=== PATIENT | female | born 1960 | race Caucasian/White ===

== ENCOUNTER → 2024-05-13 11:06 | Outpatient (REF) | payer OTHER, SELFPAY | LOC: HWRAD 11:06 | PROVIDERS: ATTENDING PHYSICIAN Family Medicine | DX: Z12.31 Encounter for screening mammogram for malignant neoplasm of breast (principal); Z78.0 Asymptomatic menopausal state | CPT/HCPCS: 77063; 77067; 77080 ==

== ENCOUNTER 2025-04-23 03:02 | Inpatient (IN) | payer OTHER, SELFPAY ==
[2025-04-22 18:07] VITALS: BP 142/87
[2025-04-22 18:27] LABS: Hematocrit 42.7 % (37.0-47.0); Hemoglobin 14.8 g/dL (12.0-16.0); Mean Corp Hgb Conc. 34.7 g/dL (33.0-37.0); Mean Corpuscular Volume 91.4 fL (81.0-99.0); Nucleated Red Blood Cells % 0 %; Platelet Count 251 10^3/uL (130-400); Red Cell Dist. Width 12.3 % (11.5-14.5)
[2025-04-22 18:48] LABS: ALT (SGPT) 16 U/L (0-35); AST (SGOT) 19 U/L (14-36); Albumin 4.5 g/dl (3.5-5.0); Alkaline Phosphatase 65 U/L (38-126); Blood Urea Nitrogen 11 mg/dl (7-17); Calcium 10.6 mg/dl (8.4-10.2); Carbon Dioxide 24 mmol/L (22-30); Chloride 108 mmol/L (98-107); Glucose 126 mg/dl (70-99); Potassium 3.9 mmol/L (3.5-5.1); Sodium 137 mmol/L (135-145); Total Protein 6.9 g/dl (6.3-8.2); eGFR > 60.00
[2025-04-22 19:00] LABS: Lipase > 4000 U/L (23-300)
[2025-04-22 20:26] VITALS: BP 142/80
[2025-04-22 21:00] VITALS: BP 108/95
[2025-04-22] MEDS: NSS 1000 IV (21:33)
[2025-04-22 21:34] VITALS: BP 108/95
[2025-04-22 22:00] VITALS: BP 135/77
--- NOTE | 2025-04-22 22:56 | ED.GENMED ---
History of Present Illness
General
Chief Complaint: Abdominal Pain
Source: patient
Exam Limitations: none
Time Seen by Provider: 04/22/25 22:55
Nursing documentation reviewed up to this point in time: agreed with
History of Present Illness
History of Present Illness:
Chief complaint: Abdominal pain
HPI:
This is a 64-year-old female with a past medical history of GERD, pancreatitis, hypertension, presents Emergency Department today with concerns of epigastric abdominal pain radiating to the back. Patient reports that this started around 3 days ago.
She reports that she was recently off from work and was recently eating fatty meals. She reports that the day before the symptoms started, she had multiple drinks in a row when she normally has 1 a night. She denies any history of alcohol use
disorder. She denies any frequent NSAID use. She denies any hematemesis, rectal bleeding, dark tarry stools. She reports that this pain feels like when she had pancreatitis in the past. Patient reports that when she had pancreatitis few years
ago, it was attributed to her diet. Patient states that she is felt nauseated but has not had any episodes of vomiting. Patient reports that she was able to tolerate some Gatorade earlier today but most of the time food and drink makes the pain
significantly worse. She denies any fevers or chills,, sick contacts, upper respiratory symptoms, chest pain or shortness of breath. She had an ovarian cyst removed as well as a but denies any other intra-abdominal surgeries.
EXAM:
General: Patient is well appearing and in no acute distress; non-toxic
Skin: Warm and dry, no rashes or lesions
Head: Normocephalic, atraumatic
Eyes: Sclera non-icteric. EOMs intact.
Cardiac: Regular rate and rhythm, no murmurs
Peripheral Vascular: No lower extremity swelling or edema
Pulm: Normal respiratory effort
Abdomen: Severe epigastric tenderness to palpation with guarding
Neuro: CN II-XII intact, no focal neurologic deficits.
Psychiatric: Appropriate mood and affect.
NUMBER AND COMPLEXITY OF PROBLEMS ADDRESSED AT THE ENCOUNTER
� Chronic conditions affecting care: Hypertension, GERD, pancreatitis
� Acute Exacerbation and/or Progression of Chronic Illness:
� Differential Diagnosis includes: Pancreatitis, GERD, gastritis, biliary colic, cholecystitis
AMOUNT AND/OR COMPLEXITY OF DATA TO BE REVIEWED AND ANALYZED
� I performed an independent evaluation of and my interpretation is:
EKG: Not applicable
CT: CT scan diffuse Leonel pancreatic edema and fluid consistent with acute pancreatitis with no evidence of discrete fluid collection with mild pancreatic ductal dilation to 5 mm there is also extrahepatic bile duct exhibit wall thickening which may
be reactive in nature but concerning for cholangitis however gallbladder unremarkable
X-rays: Not applicable
Laboratory Studies: Reviewed blood work, patient has mild leukocytosis, she also has elevated lipase and elevated fasting glucose however no evidence of total bilirubin elevation or LFT elevation
Other:
� Review of other/old records: Reviewed discharge summary from 11/02/2022 patient seen for pancreatitis and she was found to have pancreatic divisum and cause was thought to be related to diet and alcohol use
� Clinical information was obtained by an independent historian:
� Prescriptions/Medications Considered but not given:
� Further testing considered but not performed:
ED COURSE/UPDATES:
improvement in pain with morphine
RISK OF COMPLICATIONS AND/OR MORBIDITY OR MORTALITY OF PATIENT MANAGEMENT
� Social determinants of health affecting care: N/A
� Escalation of care including admission/observation vs risk of discharge considered:
This is a 64-year-old female with a past medical history of GERD, pancreatitis, hypertension, presents Emergency Department today with concerns of epigastric abdominal pain radiating to the back. Patient reports that this started around 3 days ago.
She has no chest pain. She has no hematemesis, rectal bleeding, dark tarry stools. She has no fevers or chills. On physical exam she is well-appearing no acute distress however she does have significant tenderness to palpation in the
epigastrium. She does have some mild leukocytosis. Her lipase is greater than 4000 and consistent with pancreatitis. Her CAT scan shows pancreatic edema however no discrete fluid collection. Patient referred for admission. Patient given
lactated Ringer's morphine and Zofran.
Past History
Past History
ED Past Medical History: None
ED Past Surgical History: , Orthopedic and Other
Social History
Tobacco: Non-smoker
Alcohol: Occasional
Drug: None
Personal: Single
Living: with family
Review of Systems
Review of Systems
All Other Systems: ROS reviewed and negative except as documented in HPI and ROS
Phy Exam
Physical Exam
Physical Exam:
see hpi
Course
Orders/Labs/Results
Orders:
Orders
04/22/25 18:09
IV Insert/Care/Rem.- Treatment PRN
04/22/25 18:18
Complete Blood Count/With Diff Urgent
Comprehensive Metabolic Panel Urgent
Lactic Acid Urgent
Lipase Urgent
04/22/25 21:33
0.9% Sodium Chloride 1000 ml [Nss] 1,000 ml IV BOLUS
04/22/25 23:06
Lactated Ringers [Lr] 500 ml IV BOLUS
Morphine Sulfate 4 mg IV NOW STA
Ondansetron Injectable [Zofran] 4 mg IV NOW STA
04/23/25 00:02
CT Abd/pelvis W Iv Cont Urgent
Reason For Exam: epigastric abdominal pain
04/23/25 00:54
Add On- LAB Urgent
Tests Added?: lipid panel
04/23/25 00:55
Consult Notification Routine
Specialty to Notify: Gastroenterology
GASTROINTESTINAL CONSULT Routine
Consulting Provider: Emily Aceves
Was physician already notified: No
Reason for consult: recurrent pancreatitis
Abnormal Lab Results
04/22/25
18:18
WBC 12.5 H 10^3/uL
(4.8-10.8)
MCH 31.7 H pg
(27.0-31.0)
Absolute Neuts (auto) 10.4 H 10^3/uL
(1.4-6.5)
Absolute Monos (auto) 0.7 H 10^3/uL
(0.1-0.6)
Neutrophils % 83.0 H %
(42.2-75.2)
Lymphocytes % 10.4 L %
(20.5-51.1)
Chloride 108 H mmol/L
(98-107)
Glucose 126 H mg/dl
(70-99)
Calcium 10.6 H mg/dl
(8.4-10.2)
Lipase > 4000 H* U/L
(23-300)
04/22/25 18:18
04/22/25 18:18
Vital Signs
Initial and Last Documented VS:
Initial Vital Signs
Temp Pulse Resp BP Pulse Ox
98.7 F 117 18 142/87 100
04/22/25 18:07 04/22/25 18:07 04/22/25 18:07 04/22/25 18:07 04/22/25 18:07
Last Documented Vital Signs
Temp Pulse Resp BP Pulse Ox
98.7 F 91 18 141/75 100
04/22/25 18:07 04/23/25 00:41 04/23/25 00:41 04/23/25 00:41 04/23/25 00:41
*Pulse Oximetry
SaO2: 99
Oxygen Mode of Delivery: Room air
Patient hypoxic: no
*Critical Care Note
Total Time (30-74mins, 75-104mins- exclusive of procedures): Not Applicable
ED Attending Note
-
Portions of this chart may have been created with voice recognition software.� Occasional wrong word or��sound alike� substitutions may have occurred due to the inherent limitations of voice recognition software.
Discharge Plan
Departure
Patient Disposition: Admit
Date of Disposition: 04/23/25
Time of Disposition: 00:49
Admit to: Med/Surg
Presentation/result/management discussed w/ accepting MD/DO: Hospitalist
Condition: Fair
Discharge Problem:
Acute pancreatitis
Prescriptions:
No Action
losartan 50 mg Tablet
50 mg PO DAILY
fexofenadine [Lisa] 180 mg Tablet
180 mg PO DAILYPRN PRN (Reason: allergies)
acetaminophen [Tylenol Extra Strength] 500 mg Tablet
500 mg PO DAILYPRN PRN (Reason: mild pain)
omeprazole 20 mg Capsule,Delayed Release(Dr/Ec)
20 mg PO DAILY
fluticasone propionate 50 mcg/actuation Garrett,Suspension
2 spray INTRANASAL DAILYPRN PRN (Reason: allergies)
CombiPatch 0.05-0.14 mg/24 hr Patch Semiweekly
1 patch TRANSDERMAL TUSA
Patient Comments:
04/22/2025, pt. currently wearing 1 patch on her lower right abdomen.
Referrals:
Sagrario Yuan MD [Family Provider, Family Practice]
Interventions
Interventions:
*Risk Screen - Suicide Last Done: 04/22/25 18:07
*Neglect/Abuse Screening Last Done: 04/22/25 18:07
*ED- Fall Risk Assessment Last Done: 04/22/25 20:27
*ED COVID-19 Vaccine History Last Done: 04/22/25 20:27
OV-Vqprjp-Ugluugmobh Assessment Last Done: 04/22/25 20:26
Discharge Date and Time
Print Language: TAMAZIGHT
[2025-04-22 23:00] VITALS: BP 148/85
[2025-04-22] MEDS: LR 500 IV (23:25)
[2025-04-22] MEDS: MORPHINE SULFATE 4 MG IV (23:25)
[2025-04-22] MEDS: ZOFRAN 4 MG IV (23:26)
[2025-04-22 23:27] VITALS: BMI 22.6
[2025-04-23] VITALS (8 sets, daily range): BP systolic 131–164; BP diastolic 75–88; BMI 22.9
--- NOTE | 2025-04-23 01:26 | HPS.HSE ---
Addendum entered and electronically signed by Beni Lee MD 04/23/25 01:35:
Due to penicillin allergy: Levaquin/Flagyl
Original Note:
Family Physician
-
Family Physician: Sagrario Yuan MD
Chief Complaint
-
bdominal pain
History of Present Illness
64yo F with PMHx of GERD, HTN, Hx of pancreatitis in 2022 with subsequent MRI abd without acute pancreatic findings came with epigastric pain radiating to her back. Painn started 3 days before after she had few bottles of cider. Pain improved
initially, but on the day of admission reocurred, so she came to ED. CT showed acute pancreatitis.
Medical History
Past Medical History
Past Medical History: Reports Other
Additional Past Medical History:
See HPI
Past Surgical History: Reports None
Social History
Tobacco: Non-smoker
Alcohol: Occasional
Drug: None
Family History
Family History: Not pertinent
Allergies / Home Medications
Allergies reflects when Allergies were last updated in [facility].
Home Medications with original date entered in [facility]
Allergy/Medication List:
Allergies
Allergy/AdvReac Type Severity Reaction Status Date / Time
penicillin V Allergy Rash Verified 04/22/25 18:07
Penicillins Allergy Rash Verified 04/22/25 18:07
Home Medications
acetaminophen 500 mg tablet (Tylenol Extra Strength) 500 mg PO DAILYPRN PRN mild pain 04/22/25
estradiol 0.05 mg-norethindrone 0.14 mg/24 hr semiwkly transderm patch (CombiPatch) 1 patch transdermal TUSA 04/22/25
fexofenadine 180 mg tablet 180 mg PO DAILYPRN PRN allergies 04/22/25
fluticasone propionate 50 mcg/actuation nasal spray,suspension 2 spray intranasal DAILYPRN PRN allergies 04/22/25
losartan 50 mg tablet 50 mg PO DAILY 04/22/25
omeprazole 20 mg capsule,delayed release 20 mg PO DAILY 04/22/25
Review of Systems
-
History Source: Patient
A 12 point ROS was completed and negative except as noted: Yes
Abdomen/GI: Reports See HPI
Physical Exam
Vital Signs
Vital Signs
Temp Pulse Resp BP Pulse Ox
98.7 F 91 18 141/75 100
04/22/25 18:07 04/23/25 00:41 04/23/25 00:41 04/23/25 00:41 04/23/25 00:41
Physical Exam
General: Well Developed, Well Nourished and No Apparent Distress
HEENT: NormoCephalic, Anicteric and Moist mucous membranes
Respiratory: Clear; No Wheezes or Crackles
Cardiac: S1/S2 and Regular Rhythm; No Murmur
GI: Soft, Non Tender and Non Distended
Musculoskeletal: No Clubbing, No Cyanosis and No Edema
Skin: Warm; No Rash or Jaundice
Neuro: Awake, Alert, Oriented and AO x 3
Psych: Calm
Laboratory Results
-
04/22/25 18:18
04/22/25 18:18
Laboratory Results
Lactic Acid 1.2 mmol/L (0.7-2.0) 04/22/25 18:18
Total Bilirubin 0.9 mg/dl (0.2-1.3) 04/22/25 18:18
AST 19 U/L (14-36) 04/22/25 18:18
ALT 16 U/L (0-35) 04/22/25 18:18
Alkaline Phosphatase 65 U/L (38-126) 04/22/25 18:18
Lipase > 4000 U/L (23-300) H* 04/22/25 18:18
Data Reviewed
-
Diagnostic Radiology: Report Reviewed by me
Lab Data: Labs Reviewed by me
Old Records: Reviewed
Impression/Plan
-
A/P
#Acute pancreattiis
most likely alcoholic
no stone on gall bladder
check lipids
pain mgmt
IVF
NPO
GI consult
#Mild hypercalcemia
hydrate and follow BMP
Check PTH
#Extrahepatic duct with wall thickening
MRCP to eval for choledocholithiasis
With mild leukocytosis - start Zosyn for possible cholangitis until MRCP result
#Essential HTN
#GERD
cont home meds
#Diverticulosis w/o diverticulitis
high fiber diet
DVT ppx lovenox
Full code
I have spent at least 79min admitting the patient
[2025-04-23 01:31] LABS: HDL Cholesterol 54 mg/dl; LDL Cholesterol, Calculated 143 mg/dl; Very Low Density Lipoprotein 23 mg/dl (0-30)
[2025-04-23] MEDS: LR 1000 IV ×3 (02:08→20:30)
[2025-04-23] MEDS: FLAGYL 500 MG 100 IV (02:10)
[2025-04-23] MEDS: DILAUDID 0.5 MG IV ×2 (02:29→22:57)
[2025-04-23] MEDS: LEVAQUIN 150 IV (03:25)
--- NOTE | 2025-04-23 03:55 | PTCARENOTE ---
Pt arrived from the ED via stretcher. Patient walked into the room. IVF LR and Flagyl running. AAOx3, VSS. C/o 3/10 abdominal pain. No nausea or vomiting. Patient educated on medications, pain management, and NPO status. Call gomez is within reach.
[2025-04-23 07:12] LABS: Hematocrit 39.6 % (37.0-47.0); Hemoglobin 13.4 g/dL (12.0-16.0); Mean Corp Hgb Conc. 33.8 g/dL (33.0-37.0); Mean Corpuscular Volume 95.2 fL (81.0-99.0); Nucleated Red Blood Cells % 0 %; Platelet Count 214 10^3/uL (130-400); Red Cell Dist. Width 12.3 % (11.5-14.5)
[2025-04-23 07:37] LABS: ALT (SGPT) 12 U/L (0-35); AST (SGOT) 21 U/L (14-36); Albumin 3.7 g/dl (3.5-5.0); Alkaline Phosphatase 47 U/L (38-126); Blood Urea Nitrogen 9 mg/dl (7-17); Calcium 9.8 mg/dl (8.4-10.2); Carbon Dioxide 22 mmol/L (22-30); Chloride 111 mmol/L (98-107); Estimated Creatinine Clearance 71 ml/min; Glucose 91 mg/dl (70-99); Potassium 4.2 mmol/L (3.5-5.1); Sodium 138 mmol/L (135-145); Total Protein 6.0 g/dl (6.3-8.2); eGFR > 60.00
[2025-04-23] MEDS: COZAAR 50 MG PO (07:42)
[2025-04-23] MEDS: ZOFRAN 4 MG IV ×2 (07:43→17:45)
[2025-04-23] MEDS: PROTONIX 40 MG PO (07:43)
--- NOTE | 2025-04-23 08:54 | CON.GI ---
Consultation
-
Date/Time Consultation Requested: 04/23/2025
Date/Time Consultation Performed: 04/23/2025
Requesting Provider: Beni Lee
Performing Provider: Ligia Cadet Sandal Shahzadi
Reason for Consultation: Acute Pancreatitis
Medical History
Chief Complaint / HPI
Chief Complaint: Epigastric pain radiating to back
History of Present Illness:
Patient is a 64-year-old female, with past medical history of GERD, essential hypertension, history of pancreatitis treated in 2022 with conservative measures, who had extensive workup for pancreatitis in past with no evidence of gallstones but she
was using alcohol at that time. She had been avoiding any fatty food, alcohol consumption and had been feeling well but over the last week she was on vacation where she had been eating out a lot and was consuming beverages that contained alcohol
including ciders with 5% alcohol. Her son was back recently and they were having heavy meals and she believes that all these lifestyle changes contributed to her presentation. She was in her usual state of health 3 days ago when she noticed a
sudden sharp pain in epigastric region that was radiating to the back which alarmed her. She tried to avoid meals and ate only few bites but even that triggered her symptoms. Yesterday, she was at work where she had a spoon of yogurt, a small
pretzel that triggered her symptoms which she could not tolerate and she went back home. She tried to rest but it did not get any better so she decided to come to the ER. She denies any fever, chills, nausea, vomiting, diarrhea or constipation.
Abdominal imaging done in the ER confirmed acute pancreatitis along with the symptoms and elevated lipase levels.
At the time of presentation, her heart rate was 117 and her WBC count was 12.5 for which she was started on antibiotics as she was fulfilling the SIRS criteria. Currently patient is feeling a lot better, her heart rate is ranging between 80-90.
Her leukocytosis has resolved and she feels symptomatically much improved.
Her BUN and hematocrit levels remained stable
Past Medical History
Past Medical History: GERD, HTN and Other (Prior history of acute pancreatitis treated in 2022 with conservative measures, pancreatic divisum)
Past Surgical History:
Social History
Tobacco: Former Smoker
Alcohol: Daily
Drug: None
Personal: Single
Living: With Family (She is a single mom and lives with her son)
Employment: Employed
Family History
Family History: Other (Family history of breast cancer in mother)
Allergies / Home Medications
Allergy/AdvReac Type Severity Reaction Status Date / Time
penicillin V Allergy Rash Verified 04/22/25 18:07
Penicillins Allergy Rash Verified 04/22/25 18:07
�Medication �Instructions �Recorded
acetaminophen 500 mg tablet 500 mg PO DAILYPRN PRN mild pain 04/22/25
(Tylenol Extra Strength)
estradiol 0.05 mg-norethindrone 1 patch transdermal TUSA 04/22/25
0.14 mg/24 hr semiwkly transderm
patch (CombiPatch)
fexofenadine 180 mg tablet 180 mg PO DAILYPRN PRN allergies 04/22/25
fluticasone propionate 50 2 spray intranasal DAILYPRN PRN 04/22/25
mcg/actuation nasal allergies
spray,suspension
losartan 50 mg tablet 50 mg PO DAILY 04/22/25
omeprazole 20 mg capsule,delayed 20 mg PO DAILY 04/22/25
release
Review of Systems
-
All other systems: A 12 pt ROS was Negative except as stated above in HPI
Vital Signs
Temp Pulse Resp BP Pulse Ox
98.5 F 98 14 140/80 98
04/23/25 07:57 04/23/25 07:57 04/23/25 07:57 04/23/25 07:57 04/23/25 07:57
Physical Exam
Exam
General: Well Developed, Well Nourished and No Apparent Distress
HEENT: Anicteric and Moist Mucous Membranes
Respiratory: Clear; Negative Wheezes, Rales or Rhonchi
Cardiac: S1/S2 and Regular Rhythm
GI: Soft, Non Distended, Normal Bowel Sounds and Tender (In epigastric region)
Musculoskeletal: No Clubbing, No Cyanosis and No Edema
Skin: Warm and Dry
Neuro: Awake, Oriented and Nonfocal/Grossly Intact
Psych: Calm
Results
WBC 8.8 10^3/uL (4.8-10.8) 04/23/25 06:
Hgb 13.4 g/dL (12.0-16.0) 04/23/25 06:
Hct 39.6 % (37.0-47.0) 04/23/25 06:
MCV 95.2 fL (81.0-99.0) 04/23/25 06:
Plt Count 214 10^3/uL (130-400) 04/23/25 06:
Absolute Neuts (auto) 7.2 10^3/uL (1.4-6.5) H 04/23/25 06:26
Sodium 138 mmol/L (135-145) 04/23/25 06:
Potassium 4.2 mmol/L (3.5-5.1) 04/23/25 06:
Chloride 111 mmol/L (98-107) H 04/23/25 06:
Carbon Dioxide 22 mmol/L (22-30) 04/23/25 06:
BUN 9 mg/dl (7-17) 04/23/25 06:
Creatinine 0.7 mg/dL (0.6-1.0) 04/23/25 06:
Calcium 9.8 mg/dl (8.4-10.2) 04/23/25 06:
Total Bilirubin 0.8 mg/dl (0.2-1.3) 04/23/25 06:
AST 21 U/L (14-36) 04/23/25 06:
ALT 12 U/L (0-35) 04/23/25 06:
Alkaline Phosphatase 47 U/L (38-126) 04/23/25 06:26
Lipase > 4000 U/L (23-300) H* 04/22/25 18:18
Diagnostic Image Results:
Prior GI Procedures:
EGD:
2020
Impression: - Erythematous duodenopathy. Biopsied.
- Erythematous mucosa in the antrum. Biopsied.
- Z-line regular, 39 cm from the incisors.
- No gross lesions in esophagus.
Colonoscopy:
2020
Impression: - The examined portion of the ileum was normal.
- Post-polypectomy scar in the ascending colon.
- Diverticulosis in the sigmoid colon, in the
descending colon and at the splenic flexure.
- Internal hemorrhoids.
- No specimens collected.
Recommendation: - Repeat colonoscopy in 5 years for surveillance.
2018
Impression: - The examined portion of the ileum was normal.
- One 2 mm polyp in the cecum, removed with a jumbo cold
forceps. Resected and retrieved. Clip was placed.
- One 2 mm polyp in the ascending colon, removed with a
jumbo cold forceps. Resected and retrieved.
- One 12 to 15 mm polyp in the ascending colon, removed
piecemeal using a hot snare. Resected and retrieved.
Injected. Clips were placed.
- One 2 mm polyp in the rectum, removed with a jumbo
cold forceps. Resected and retrieved.
- Diverticulosis in the sigmoid colon and in the
ascending colon.
Assessment / Plan
-
Impression
Ms. Andersen is a 64-year-old female, admitted with acute pancreatitis based on symptoms, imaging and lipase level of greater than 4000. GI consulted for recommendations.
Assessment/plan
Acute pancreatitis- No leukocytosis, stable hematocrit and BUN (most likely related to alcohol/lifestyle)
Reactive gastritis/duodenitis
No evidence of gallstones
Triglyceride levels within normal limits
No recent sting bites/procedures
CT A/P07/06/2025
IMPRESSION: CT findings compatible with pancreatitis. Dilation of the pancreatic duct with pancreatic divisum anatomy.
No evidence for biliary ductal dilation.
No evidence of focal collection to suggest abscess or developing pseudocyst at this time.
Reactive duodenitis and gastritis.
No evidence for significant pleural effusion bilaterally.
2 cm cystic mass arising in the left ovary, compatible with follicle/small cyst. Based on recommendations from the [employer], no further imaging follow-up is recommended.
Plan
Start clears
As the patient tolerates, advance diet as tolerated
Taper down fluids accordingly
Can discontinue antibiotics
Discussed the pathophysiology and etiology of the disease process
Patient understands and agrees to discontinue the use of any beverages that contain alcohol
Follow-up on outpatient basis
DVT prophylaxis enoxaparin
CODE STATUS full code
-
-
Thank you for consultation and allowing me to participate in the patient's care. Please call the workers compensation claims analyst GI physician during the after hours with any questions or concerns.
[2025-04-23] MEDS: MORPHINE SULFATE 1 MG IV ×2 (09:06→17:45)
[2025-04-23] MEDS: CLARITIN 10 MG PO (11:14)
--- NOTE | 2025-04-23 13:01 | CM ---
Met with patient to obtain information for assessment. Patient stated that she lives with her 20 y/o son in a two story home with six steps to enter. She described herself as independent with her ADLs, personal care, dressing and bathing. 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 She drives and can get to her appointments and do all of her own shopping. She has no DME. She has never had VN.
Patient has a prescription plan and uses, [facility] [address].
Patient's PCP is, Sagrario Yuan.
Plan: Case management will continue to follow and assist with discharge planning. Should be home no needs.
--- NOTE | 2025-04-23 15:44 | W.PN.UPDATE ---
Update Note
Progress Note Update
Non billable note
1. Acute pancreatitis - lipase elevated greater than 4000 in the night. MRI MRCP showing mild pancreatitis with incomplete pancreatic divisum. GI evaluated and recommended patient diet to be advanced as tolerated. Pancreatic divisum can cause
issues with pancreatitis.
2. Pancreatic duct calculi -patient have incomplete pancreatic divisum with intraluminal calculi within the ventral duct of worsening. There is distention of dorsal/main pancreatic duct of [place]or[place] as well.
--- NOTE | 2025-04-23 17:38 | PTCARENOTE ---
Pt ate lunch over 2 hour period to 'be on the safe side'. Pt reports feelings of indigestion. She states she is 'not ready to chew and swallow food'. Pt remaining on clear liquid diet for dinner. Pt has no further complaints at this time. See Mar
for PRN pain/nausea medication administration.
[2025-04-23] MEDS: LOVENOX 40 MG SC (17:44)
[2025-04-23] MEDS: SENOKOT-S 1 TABLET PO (20:30)
[2025-04-24] MEDS: DILAUDID 0.5 MG IV ×3 (03:03→23:02)
[2025-04-24] MEDS: LR 1000 IV ×3 (03:04→18:29)
[2025-04-24 07:44] VITALS: BP 153/75
[2025-04-24] MEDS: SENOKOT-S 1 TABLET PO ×2 (07:52→21:47)
[2025-04-24] MEDS: PROTONIX 40 MG PO (07:52)
[2025-04-24] MEDS: COZAAR 50 MG PO (07:52)
[2025-04-24] MEDS: CLARITIN 10 MG PO (08:54)
[2025-04-24] MEDS: OCEAN, SALINE MIST 1 SPRAYS NASAL (10:00)
[2025-04-24 10:29] LABS: Blood Urea Nitrogen 7 mg/dl (7-17); Calcium 9.8 mg/dl (8.4-10.2); Carbon Dioxide 23 mmol/L (22-30); Chloride 108 mmol/L (98-107); Estimated Creatinine Clearance 71 ml/min; Glucose 79 mg/dl (70-99); Potassium 4.0 mmol/L (3.5-5.1); Sodium 137 mmol/L (135-145); eGFR > 60.00
[2025-04-24 10:55] LABS: Lipase > 4000 U/L (23-300)
[2025-04-24] MEDS: TYLENOL 650 MG PO ×2 (14:19→18:24)
[2025-04-24 15:36] VITALS: BP 137/75
--- NOTE | 2025-04-24 17:29 | W.PN.HOSP.TC ---
Today's Communication/Plan
-
continue on CL diet for today
repeat labs in the morning
Assessment / Plan
Assessment / Plan
1. Acute pancreatitis
- lipase elevated greater than 4000 in the night.
- MRI MRCP showing mild pancreatitis with incomplete pancreatic divisum.
- GI evaluated and recommended patient diet to be advanced as tolerated.
- Pancreatic divisum can cause issues with pancreatitis.
- Patient continues to have abd pain and nausea overnight, advised to continue on CL intake for now.
2. Pancreatic duct calculi
-patient have incomplete pancreatic divisum with intraluminal calculi within the ventral duct of worsening. There is distention of dorsal/main pancreatic duct of [place] as well.
3. Alcohol use
- recommended to avoid alcohol use as can cause further episode of pancreatitis
4. Essential HTN
- maintain on losartan
5. GERD
- continue on omeprazole
DVT PPX -scd
Full code
Anticipated Discharge: Within 24 hours
Subjective/Interval History
-
Date of Service: April 24, 2025
continues to have abdominal pain
some nausea/uneasiness with food intake
no vomiting
Objective Data
-
Labs:
Laboratory Results
04/24/25 04/24/25
09:19 10:03
Sodium Cancelled 137
Potassium Cancelled 4.0
Chloride Cancelled 108 H
Carbon Dioxide Cancelled 23
BUN Cancelled 7
Creatinine Cancelled 0.7
Glucose Cancelled 79
Calcium Cancelled 9.8
Vital Signs:
Vital Signs
Temp Pulse Resp BP Pulse Ox
98.3 F 88 16 137/75 99
04/24/25 15:36 04/24/25 15:36 04/24/25 15:36 04/24/25 15:36 04/24/25 15:36
I&O
04/23/25 04/24/25 04/25/25
06:59 06:59 06:59
Intake Total 2419
Balance 2419
Review of Systems
-
Respiratory: Reports No Symptoms
Cardiac: Reports No Symptoms
Abdomen/GI: Reports Abdominal Pain and Nausea; Denies Vomiting
Physical Exam
-
General: No Apparent Distress and Comfortable
HEENT: Negative Oxygen
GI: Normal Bowel Sounds and Tender
Musculoskeletal: No Edema
Neuro: Awake, Alert, Oriented, No Motor Deficits and Nonfocal/Grossly Intact
Psych: Calm
[2025-04-24] MEDS: LOVENOX 40 MG SC (17:31)
[2025-04-24] MEDS: MORPHINE SULFATE 1 MG IV (18:03)
[2025-04-24 23:05] VITALS: BP 135/78
[2025-04-25] MEDS: LR 1000 IV (05:00)
[2025-04-25 07:13] VITALS: BP 141/83
[2025-04-25] MEDS: COZAAR 50 MG PO (08:12)
[2025-04-25] MEDS: PROTONIX 40 MG PO (08:12)
[2025-04-25 08:34] LABS: Blood Urea Nitrogen 4 mg/dl (7-17); Calcium 10.1 mg/dl (8.4-10.2); Carbon Dioxide 25 mmol/L (22-30); Chloride 110 mmol/L (98-107); Estimated Creatinine Clearance 71 ml/min; Glucose 90 mg/dl (70-99); Lipase 1042 U/L (23-300); Potassium 3.9 mmol/L (3.5-5.1); Sodium 139 mmol/L (135-145); eGFR > 60.00
[2025-04-25] MEDS: TYLENOL 650 MG PO (10:27)
--- NOTE | 2025-04-25 11:06 | W.PN.HOSP.TC ---
Today's Communication/Plan
-
d/c home if able to tolerate LF diet
Assessment / Plan
Assessment / Plan
1. Acute pancreatitis
- lipase elevated greater than 4000 in the night.
- MRI MRCP showing mild pancreatitis with incomplete pancreatic divisum.
- GI evaluated and recommended patient diet to be advanced as tolerated.
- Pancreatic divisum can cause issues with pancreatitis.
- Lipase down to 1k. no abd pain/nausea.
2. Pancreatic duct calculi
-patient have incomplete pancreatic divisum with intraluminal calculi within the ventral duct of worsening. There is distention of dorsal/main pancreatic duct of Santorini as well.
- discussed with GI if will require f/u with interventional GI post discharge.
3. Alcohol use
- recommended to avoid alcohol use as can cause further episode of pancreatitis
4. Essential HTN
- maintain on losartan
5. GERD
- continue on omeprazole
DVT PPX -scd
Full code
More than 30 minutes spent in discharge including
Final examination of the patient
Summarizing hospital stay
Instructions for continuing care to all relevant caregivers
Preparation of discharge records, prescriptions, and referral forms
Total time spent (in minutes): 39 mins
Anticipated Discharge: Today
Subjective/Interval History
-
Date of Service: April 25, 2025
feeling better
abd pain has resolved
no nausea/vomiting
Objective Data
-
Labs:
Laboratory Results
04/25/25
06:53
Sodium 139
Potassium 3.9
Chloride 110 H
Carbon Dioxide 25
BUN 4 L
Creatinine 0.7
Glucose 90
Calcium 10.1
Vital Signs:
Vital Signs
Temp Pulse Resp BP Pulse Ox
98.2 F 78 16 141/83 98
04/25/25 07:13 04/25/25 08:12 04/25/25 07:13 04/25/25 08:12 04/25/25 10:52
I&O
04/24/25 04/25/25 04/26/25
06:59 06:59 06:59
Intake Total 2420 / 2420 4080 / 4080 320 / 320
Balance 2420 / 2420 4080 / 4080 320 / 320
Review of Systems
-
Respiratory: Reports No Symptoms
Cardiac: Reports No Symptoms
Abdomen/GI: Reports No Symptoms
Physical Exam
-
General: No Apparent Distress and Comfortable
HEENT: Negative Oxygen
GI: Soft and Normal Bowel Sounds
Musculoskeletal: No Edema
Neuro: Awake, Alert, Oriented, No Motor Deficits and Nonfocal/Grossly Intact
Psych: Calm
[2025-04-25 13:57] VITALS: BP 141/87
--- NOTE | 2025-04-26 16:01 | W.DCSUMMARY ---
Discharge Summary
Discharge Data
Date of Admission: 04/23/25
Date of Discharge: 04/25/25
-
Pending Results: No
Hospital Course
Discharging Physician : Dr John Cardenas
Disposition : Home
Primary care physician :Dr Sagrario Yuan
Principal Discharge diagnosis :
Acute pancreatitis
Pancreatic divisum with calculi within ventral duct of Wirsung
Chronic Discharge diagnosis :
Occasional alcohol use
Seasonal allergy
Gastroesophageal reflux disease
History of pancreatitis
Essential hypertension
Hospital Course :
Patient is a 64-year-old female with above-mentioned past medical history came to ER with new onset of abdominal pain with radiation to back and associated nausea and vomiting. In ER patient was found to having significantly elevated lipase of
4000. CT abdomen pelvis showing changes of pancreatitis. GI was consulted for further help. Patient had MRI MRCP which showed mild pancreatitis with incomplete pancreatic divisum, there was some dilation of pancreatic duct with minimal stone as
well. Patient was managed with bowel rest and IV hydration and had resolution of pancreatitis. Case discussed with GI who has recommended for patient to follow-up with interventional primary mill roller Dr. Bentley postdischarge for evaluation of
intraluminal calculi in ventral duct of wirsung. Patient uses all alcohol occasionally and recommended to avoid in future.
Important imaging findings :
None
Procedure findings :
None
Discharge Plan
-
Patient Disposition: Home (Routine Discharge)
Discharge Diagnosis/Procedures: Acute pancreatitis
Condition: Fair
Diet: Low Fat
Activity: As tolerated
Driving Restrictions: As prior to admission
Bathing Restrictions: OK to Shower
Referrals:
You Bentley MD [Active, Gastroenterology] - in three to four weeks
Sagrario Yuan MD [Family Provider, Family Practice] - in one week
Prescriptions:
Continued
losartan 50 mg Tablet
50 mg PO DAILY
fexofenadine 180 mg Tablet
180 mg PO DAILYPRN PRN (Reason: allergies)
acetaminophen [Tylenol Extra Strength] 500 mg Tablet
500 mg PO DAILYPRN PRN (Reason: mild pain)
omeprazole 20 mg Capsule,Delayed Release(Dr/Ec)
20 mg PO DAILY
fluticasone propionate 50 mcg/actuation [place],Suspension
2 spray INTRANASAL DAILYPRN PRN (Reason: allergies)
CombiPatch 0.05-0.14 mg/24 hr Patch Semiweekly
1 patch TRANSDERMAL TUSA
Patient Comments:
04/22/2025, pt. currently wearing 1 patch on her lower right abdomen.
Discharge Orders:
Discharge Patient (As Directed); Ordered 04/25/25
Ordered By: John Cardenas
Discharge Date and Time
Discharge Date/Time: 04/25/25 14:13
Print Language: ICELANDIC
== END 2025-04-25 14:13 | disposition home or self-care (01) | DRG 439 ==
LOC: 4 EAST ACU 03:02
PROVIDERS: Emergency Medicine; ADMITTING PHYSICIAN Internal Medicine; ATTENDING PHYSICIAN Hospitalist; EMERGENCY PHYSICIAN Emergency Medicine; FAMILY PHYSICIAN Family Medicine; OTHER PHYSICIAN Internal Medicine
DX: K85.90 Acute pancreatitis without necrosis or infection, unspecified (principal); Q45.3 Other congenital malformations of pancreas and pancreatic duct; I10 Essential (primary) hypertension; K21.9 Gastro-esophageal reflux disease without esophagitis; R74.8 Abnormal levels of other serum enzymes; F10.90 Alcohol use, unspecified, uncomplicated; K86.89 Other specified diseases of pancreas; E83.52 Hypercalcemia; Z88.0 Allergy status to penicillin; Z87.891 Personal history of nicotine dependence; Z80.3 Family history of malignant neoplasm of breast
CPT/HCPCS: 74177; 74181; 80048; 80053; 80061; 83605; 83690; 85025; 96361; 96365; 96375; 99284; Q9967

== ENCOUNTER 2025-04-27 11:25 | Inpatient (IN) | payer OTHER, SELFPAY ==
[2025-04-27] VITALS (7 sets, daily range): BP systolic 145–170; BP diastolic 70–93; BMI 22.4
[2025-04-27 09:23] LABS: Hematocrit 41.8 % (37.0-47.0); Hemoglobin 15.1 g/dL (12.0-16.0); Mean Corp Hgb Conc. 36.1 g/dL (33.0-37.0); Mean Corpuscular Volume 90.3 fL (81.0-99.0); Nucleated Red Blood Cells % 0 %; Platelet Count 249 10^3/uL (130-400); Red Cell Dist. Width 11.6 % (11.5-14.5)
--- NOTE | 2025-04-27 09:28 | ED.GENMED ---
History of Present Illness
General
Chief Complaint: Abdominal Pain
Source: patient
Time Seen by Provider: 04/27/25 08:44
History of Present Illness
History of Present Illness:
64-year-old female recently admitted at this facility for suspected gallstone pancreatitis presenting back to the emergency department for evaluation of continued and worsening abdominal pain since yesterday evening, no relief with Tylenol with
patient noting associated constipation. She states that she was taking the Senokot prescribed to her but believes the medication she was receiving for pain control within the hospital is ultimately what is causing the constipation. Patient denies
any fevers, urinary, flank pain or any other concerns. Patient states the pain is the same as to when she was admitted for the pancreatitis. Notes the only medication that really gave her any form of relief was Dilaudid. No new concerns other
than the constipation at this time.
Past History
Past History
ED Past Medical History: GERD, HTN and Other (Pancreatitis)
ED Past Surgical History: , Orthopedic and Other
Social History
Tobacco: Non-smoker
Alcohol: Occasional
Drug: None
Personal: Single
Living: with family
Review of Systems
Review of Systems
All Other Systems: ROS reviewed and negative except as documented in HPI and ROS
Phy Exam
Physical Exam
Physical Exam:
GENERAL: Alert , in no apparent distress but does appear uncomfortable
EYE: clear conjunctiva b/l
HEAD: NCAT
ENT: o/p clr, mmm.
CARDIAC: Regular rate and rhythm .
LUNGS: Clear breath sounds bilaterally, no acute respiratory distress, no wheezes/rales/rhonchi
ABDOMEN: Soft, moderate tenderness within the epigastrium and periumbilical region but no rebound or guarding , no cvat, negative Harris sign, no tenderness at McBurney's point
NEUROLOGICAL: Alert and oriented
SKIN: Warm and dry, skin intact.
MUSCULOSKELETAL: No edema, well perfused.
PSYCH: Normal and appropriate interaction.
Scores
Heart Failure Risk
Heart Failure Risk Score: Not Applicable
Heart Score for Chest Pain Patients
STEMI patient?: Not applicable
Withdrawal Assessment of Alcohol
Withdrawal Assessment Completed?: Not applicable
Course
Orders/Labs/Results
Orders:
Orders
04/27/25 08:54
Enema- Treatment ONCE
Type: Milk of Molasses
0.9% Sodium Chloride 1000 ml [Nss] 1,000 ml IV BOLUS
HYDROmorphone [Dilaudid] 1 mg IV NOW STA
04/27/25 08:55
CR Abdomen - 1 View Urgent
Comment:
Reason For Exam: recent pancreatitis, constipation, pain
04/27/25 09:13
Complete Blood Count/With Diff Urgent
Comprehensive Metabolic Panel Urgent
Lipase Urgent
04/27/25 10:41
Urinalysis Reflex To Culture Urgent
Date Specimen was Collected: 04/27/25
Time Specimen was Collected: 10:36
Urine Microscopic Reflex Cult Urgent
04/27/25 10:53
Admit/Transfer Patient As Directed
Co-Sign Provider:
Level of Care: Inpatient admission
Assign to:: Medical/Surgical
Physician / Group: John Cardenas
Diagnosis: Acute pancreatitis
Reason for Hospitalization: Acute pancreatitis
Expected length of stay greater than two midnights?: Yes
ELOS- Estimated Length of Stay in days: 2
I certify the patient meets the requirements for IP care: Yes
PRN Pain Medication Management As Directed
May give lesser potent ordered pain med per pt: Yes
preference::
Protocol:: Medication orders for pain may be administered in a
manner that supports deferring to patient preference
when the pt is:
- Requesting an ordered lesser potent pain medication.
Least to most potent pain medications are defined
as: acetaminophen < NSAID < tramadol < opioids
(morphine, oxycodone, hydromorphone).
- Requesting a lesser dose of the same medication IF
ORDERED.
- Requesting a less intrusive route of administration
if both routes are prescribed by the provider (PO <
IV).
04/27/25 10:54
Code Status As Directed
Resuscitation Status: Full Code
Abnormal Lab Results
04/27/25 04/27/25
09: 10:41
MCH 32.6 H pg
(27.0-31.0)
Absolute Neuts (auto) 7.1 H 10^3/uL
(1.4-6.5)
Absolute Lymphs (auto) 0.9 L 10^3/uL
(1.2-3.4)
Neutrophils % 82.1 H %
(42.2-75.2)
Lymphocytes % 10.6 L %
(20.5-51.1)
Glucose 123 H mg/dl
(70-99)
Calcium 10.7 H mg/dl
(8.4-10.2)
Lipase > 4000 H* U/L
(23-300)
Urine Ketones 2+ A
(Negative)
Urine Bacteria (Reflex) Few A
(Negative)
Urine Albumin (Reflex) 1+ A
(Neg - Trace)
04/27/25 09:13
04/27/25 09:13
Vital Signs
Initial and Last Documented VS:
Initial Vital Signs
Temp Pulse Resp BP Pulse Ox
98.5 F 104 18 168/90 99
04/27/25 07:13 04/27/25 07:13 04/27/25 07:13 04/27/25 07:13 04/27/25 07:13
Last Documented Vital Signs
Temp Pulse Resp BP Pulse Ox
98.4 F 79 16 149/70 99
04/27/25 12:07 04/27/25 12:07 04/27/25 10:39 04/27/25 12:07 04/27/25 12:07
MDM/Problems Addressed
Differential Diagnosis Includes:
Reoccurring pancreatitis
Constipation
Bowel obstruction
Less concern for an acute surgical abdomen such as appendicitis or cholecystitis
Dehydration
Electrolyte imbalance
Renal dysfunction
MDM/Problems Addressed:
64-year-old female presenting to the emergency department for evaluation after she was recently discharged from the hospital for acute pancreatitis, now with recurring and worsening pain. Patient had MRCP which showed mild pancreatitis with
incomplete pancreatic divisum, some dilation of the pancreatic duct with minimal stone. Patient was going to follow-up with Dr. Bentley postdischarge for evaluation of intraluminal calculi in the ventral duct of Wirsung. Will treat pain here with
additional Dilaudid and fluids. Due to the constipation will obtain an obstructive series. Offered patient different stool softeners but she ultimately preferred to try an enema. Will wait for obstructive series prior to giving. Anticipate
likely need for readmission for further pain control and evaluation.
Chronic conditions affecting care: Other (Pancreatitis)
Acute Exacerbation and/or Progression of Chronic Illness: Other (Pancreatitis)
*Radiology
Radiology exam reviewed: preliminary read by ED provider (No obstruction, mild stool throughout)
*Pulse Oximetry
SaO2: 99
Oxygen Mode of Delivery: Room air
Patient hypoxic: no
*Critical Care Note
Total Time (30-74mins, 75-104mins- exclusive of procedures): Not Applicable
Data Reviewed
Review of Other/Old Records Reveals: Labs, Records and Discharge Summary
Source: patient and records
Patient Management
Discussion with other providers: Hospitalist and Photovoltaic Installer
Escalation/DeEscalation of care consider admission/obs:
Patient's lipase back of 4000. Given her pain, lab findings and known complications from gallstone will admit back to the hospitalist service for continued pain control. I notified GI so they can consult on the patient while admitted. Patient
does note some relief with pain medicine provided here so far
ED Attending Note
-
Portions of this chart may have been created with voice recognition software.� Occasional wrong word or��sound alike� substitutions may have occurred due to the inherent limitations of voice recognition software.
Discharge Plan
Departure
Patient Disposition: Admit
Date of Disposition: 04/27/25
Time of Disposition: 10:22
Presentation/result/management discussed w/ accepting MD/DO: Hospitalist
Discharge Problem:
Acute pancreatitis
Interventions
Interventions:
*Risk Screen - Suicide Last Done: 04/27/25 07:13
*General Assessment Last Done: 04/27/25 07:13
*Neglect/Abuse Screening Last Done: 04/27/25 07:13
*ED- Fall Risk Assessment Last Done: 04/27/25 09:09
*ED COVID-19 Vaccine History Last Done: 04/27/25 09:09
GC-Dow[facility]-Mhemmojrgc Assessment Last Done: 04/27/25 10:00
[2025-04-27 09:51] LABS: ALT (SGPT) 26 U/L (0-35); AST (SGOT) 36 U/L (14-36); Albumin 4.5 g/dl (3.5-5.0); Alkaline Phosphatase 52 U/L (38-126); Blood Urea Nitrogen 8 mg/dl (7-17); Calcium 10.7 mg/dl (8.4-10.2); Carbon Dioxide 27 mmol/L (22-30); Chloride 103 mmol/L (98-107); Glucose 123 mg/dl (70-99); Potassium 4.0 mmol/L (3.5-5.1); Sodium 136 mmol/L (135-145); Total Protein 7.3 g/dl (6.3-8.2); eGFR > 60.00
[2025-04-27 10:00] LABS: Lipase > 4000 U/L (23-300)
[2025-04-27] MEDS: DILAUDID 1 MG IV (10:30)
[2025-04-27] MEDS: NSS 1000 IV ×3 (10:32→20:27)
--- NOTE | 2025-04-27 10:35 | CM ---
CM reviewed chart, unable to speak with pt, provider was in room. Pt was admitted last week also.
Lives with 20 yo son in 2 story home, [address].
Independent in ADLs, personal care and ambulation at baseline, No DME, No hx VN/SNF
PCP: Sagrario Yuan
Pharmacy: [facility] [address]
Anticipate discharge home, watch for needs
--- NOTE | 2025-04-27 10:38 | CON.GI ---
Consultation
-
Date/Time Consultation Performed: 04/27/25
Performing Provider: Clark Prescott MD
Reason for Consultation: pancreatitis
Medical History
Chief Complaint / HPI
Chief Complaint: abdominal pain
History of Present Illness:
The patient is a 64-year-old female past medical history as noted who presents with current abdominal pain. She was recently hospitalized with acute abdominal pain and pancreatitis from April 22 to . After discharge, however she had persistent
pain along with sore, which was worsening which prompted to come back to the emergency room where her lead again greater than 4000 and hemoglobin greater than 15. Her recent episode of pancreatitis was after alcohol, though did have an MRI that
showed known pancreatic divisum, though this time also showed small stone in the duct of Wirsung with mildly dilated duct of Santorini. It was still thought that her pancreatitis was secondary to alcohol that admission. She did have an outpatient
follow-up with Dr. Bentley scheduled for couple of months. Currently she is feeling okay, still with pain and nausea though no vomiting, fever.
Past Medical History
Past Medical History: Other (Pancreatitis as described above, known pancreatic divisum, prior alcohol,GERD, hypertension)
Past Surgical History: Other ()
Social History
Tobacco: Former Smoker
Alcohol: Daily
Family History
Family History: Reviewed & Not Pertinent
Allergies / Home Medications
Allergy/AdvReac Type Severity Reaction Status Date / Time
penicillin V Allergy Rash Verified 04/27/25 07:13
Penicillins Allergy Rash Verified 04/27/25 07:13
�Medication �Instructions �Recorded
acetaminophen 500 mg tablet 500 mg PO DAILYPRN PRN mild pain 04/22/25
(Tylenol Extra Strength)
estradiol 0.05 mg-norethindrone 1 patch transdermal TUSA Hormonal 04/22/25
0.14 mg/24 hr semiwkly transderm Agent
patch (CombiPatch)
fexofenadine 180 mg tablet 180 mg PO DAILYPRN PRN allergies 04/22/25
fluticasone propionate 50 2 spray intranasal DAILYPRN PRN 04/22/25
mcg/actuation nasal allergies
spray,suspension
losartan 50 mg tablet 50 mg PO DAILY Blood Pressure 04/22/25
omeprazole 20 mg capsule,delayed 20 mg PO DAILY Gastrointestinal 04/22/25
release Issue
Review of Systems
-
All other systems: A 12 pt ROS was Negative except as stated above in HPI
Vital Signs
Temp Pulse Resp BP Pulse Ox
98.5 F 81 16 157/82 99
04/27/25 07:13 04/27/25 09:12 04/27/25 09:12 04/27/25 09:12 04/27/25 09:37
Physical Exam
Exam
General: NAD
HEENT: MMM, anicteric, no lymphadenopathy
Heart: Regular, no murmurs
Lungs: CTA bilaterally
Abdomen: normal bowel sounds, soft, mild epigastric tenderness, no rebound or guarding, no masses, bruits or ascites
Extremeties: no edema
Skin: no rashes
Results
WBC 8.6 10^3/uL (4.8-10.8) 04/27/25 09:13
Hgb 15.1 g/dL (12.0-16.0) 04/27/25 09:13
Hct 41.8 % (37.0-47.0) 04/27/25 09:13
MCV 90.3 fL (81.0-99.0) 04/27/25 09:13
Plt Count 249 10^3/uL (130-400) 04/27/25 09:13
Absolute Neuts (auto) 7.1 10^3/uL (1.4-6.5) H 04/27/25 09:13
Sodium 136 mmol/L (135-145) 04/27/25 09:13
Potassium 4.0 mmol/L (3.5-5.1) 04/27/25 09:13
Chloride 103 mmol/L (98-107) 04/27/25 09:13
Carbon Dioxide 27 mmol/L (22-30) 04/27/25 09:13
BUN 8 mg/dl (7-17) 04/27/25 09:13
Creatinine 0.6 mg/dL (0.6-1.0) 04/27/25 09:13
Calcium 10.7 mg/dl (8.4-10.2) H 04/27/25 09:13
Total Bilirubin 0.8 mg/dl (0.2-1.3) 04/27/25 09:13
AST 36 U/L (14-36) 04/27/25 09:13
ALT 26 U/L (0-35) 04/27/25 09:13
Alkaline Phosphatase 52 U/L (38-126) 04/27/25 09:13
Lipase > 4000 U/L (23-300) H* 04/27/25 09:13
Diagnostic Image Results:
MRCP:
IMPRESSION:
Mild pancreatitis most pronounced in the region of the posterior pancreatic head and uncinate process. Findings consistent with incomplete pancreatic divisum, as described.
Intraluminal calculi within the ventral Duct of Wirsung along the posterior margin of the pancreatic head/uncinate process.
There is distention of the dorsal/main pancreatic duct of Santorini measuring up to 4.4 mm.
The common bile duct is normal in caliber without evidence of choledocholithiasis.
Prior GI Procedures:
EGD:
Colonoscopy:
Assessment / Plan
-
1. Pancreatitis: Mild, interstitial, though with persistent symptoms, likely still persistent from her recent admission, possibly worsened with reintroduction of food quickly, with benign exam now though does have signs of dehydration with
hemoglobin greater than 15 and lipase more elevated than before. The etiology of her pancreatitis still is more likely related to alcohol, though on her MRI she did have a new stone in the minor pancreatic duct. At this point we will continue
aggressive hydration, pain control and n.p.o. for now. Pending clinical course will likely reintroduce food more slowly. I will discussed with Dr. Bentley, though doubt any planned interventional procedures for now.
-
-
Thank you for consultation and allowing me to participate in the patient's care. Please call the waste elimination GI physician during the after hours with any questions or concerns.
[2025-04-27 10:56] LABS: Urine Character Slightly Cloudy (Clear)
--- NOTE | 2025-04-27 10:58 | HPS.HSE ---
Family Physician
-
Family Physician: Sagrario Yuan MD
Chief Complaint
-
Abdominal pain nausea
History of Present Illness
Patient is a 64-year-old female with past medical history of pancreatic divisum, recurrent pancreatitis, seasonal allergy, essential hypertension, GERD, occasional alcohol use who was discharged 2 days back for episode of pancreatitis came back with
recurrence of worsening abdominal pain, epigastric in nature with some radiation to back. Associate with nausea no vomiting. Patient feels bloated and and had very small bowel movement. Abdominal x-ray in ER done report pending. Repeat blood
work showing patient lipase above 4000, patient is being admitted for recurrence of pancreatitis episode.
Patient denies of having any cardiopulmonary complaints except noting high blood pressure and some palpitation. Feeling some dizziness, no syncope.
Medical History
Past Medical History
Past Medical History: Reports Other
Additional Past Medical History:
pancreatic divisum, recurrent pancreatitis, seasonal allergy, essential hypertension, GERD, occasional alcohol use
Past Surgical History: Reports Other
Social History
Tobacco: Non-smoker
Alcohol: Occasional
Drug: None
Family History
Family History: Not pertinent
Allergies / Home Medications
Allergies reflects when Allergies were last updated in [facility].
Home Medications with original date entered in [facility]
Allergy/Medication List:
Allergies
Allergy/AdvReac Type Severity Reaction Status Date / Time
latex Allergy Unknown Verified 04/27/25 10:44
penicillin V Allergy Rash Verified 04/27/25 07:13
Penicillins Allergy Rash Verified 04/27/25 07:13
Home Medications
acetaminophen 500 mg tablet (Tylenol Extra Strength) 500 mg PO DAILYPRN PRN mild pain 04/22/25
estradiol 0.05 mg-norethindrone 0.14 mg/24 hr semiwkly transderm patch (CombiPatch) 1 patch transdermal TUSA Hormonal Agent 04/22/25
fexofenadine 180 mg tablet 180 mg PO DAILYPRN PRN allergies 04/22/25
fluticasone propionate 50 mcg/actuation nasal spray,suspension 2 spray intranasal DAILYPRN PRN allergies 04/22/25
losartan 50 mg tablet 50 mg PO DAILY Blood Pressure 04/22/25
omeprazole 20 mg capsule,delayed release 20 mg PO DAILY Gastrointestinal Issue 04/22/25
Review of Systems
-
A 12 point ROS was completed and negative except as noted: Yes
Physical Exam
Vital Signs
Vital Signs
Temp Pulse Resp BP Pulse Ox
98.7 F 83 16 170/89 100
04/27/25 10:39 04/27/25 10:39 04/27/25 10:39 04/27/25 10:39 04/27/25 10:39
Physical Exam
General: Well Developed, Well Nourished and No Apparent Distress
HEENT: NormoCephalic, Moist mucous membranes and Atraumatic
Respiratory: Clear
Cardiac: S1/S2 and Regular Rhythm; No Murmur or Rub
GI: Soft, Non Distended and Tender (Epigastric); No Normal Bowel Sounds or Organomegaly
Musculoskeletal: No Clubbing, No Cyanosis and No Edema
Skin: No Rash
Neuro: Nonfocal/grossly intact
Laboratory Results
-
04/27/25 09:13
04/27/25 09:13
Laboratory Results
Total Bilirubin 0.8 mg/dl (0.2-1.3) 04/27/25 09:13
AST 36 U/L (14-36) 04/27/25 09:13
ALT 26 U/L (0-35) 04/27/25 09:13
Alkaline Phosphatase 52 U/L (38-126) 04/27/25 09:13
Lipase > 4000 U/L (23-300) H* 04/27/25 09:13
Impression/Plan
-
MR abd/MRCP from 04/23
Mild pancreatitis most pronounced in the region of the posterior pancreatic head and uncinate process. Findings consistent with incomplete pancreatic divisum, as described.
Intraluminal calculi within the ventral Duct of Wirsung along the posterior margin of the pancreatic head/uncinate process.
There is distention of the dorsal/main pancreatic duct of Santorini measuring up to 4.4 mm.
The common bile duct is normal in caliber without evidence of choledocholithiasis.
1. Recurrence of pancreatitis
History of pancreatitis
History of pancreatic divisum
-Lipase again elevated greater than 4000
-Repeat abdominal imaging deferred to GI. MRI abdomen/MRCP from previous visit as above
-Maintain strict n.p.o. and on NS 125 mL/h
-IV Dilaudid for pain control
-Zofran for nausea
-Admit to Medr floor
2. Pancreatic duct stone
-Small calculus in ventral duct of Wirsung
-GI planning to discuss with interventional social studies teacher for further evaluation
3. Hypertensive urgency
Essential hypertension
- Hold oral losartan
- IV hydralazine 10 mg every 4 hours as needed for systolic blood pressure greater than 160
- With need of IV fluid expect blood pressure to remain uncontrolled. Resume oral medication when appropriate
4. Alcohol use
- No reported alcohol use postdischarge.
- Patient drinks very occasionally nonetheless
5 GERD
- Switch oral omeprazole to IV Protonix
DVT prophylaxis -Lovenox
Full code
Total time spent : 79 mins
I personally saw and examined the patient.
I have reviewed all diagnostic interpretations and treatment plans as written.
Time includes patient management by me, time spent at the patients bedside, time to review lab and imaging results, discussing patient care, documentation in the medical record, and time spent with the family or caregiver and discussing care plan
with RN/Consultants.
[2025-04-27 11:35] LABS: Urine Red Blood Cell 0-2 /HPF (0-2); Urine White Cell 0-2 /HPF (0-5)
[2025-04-27] MEDS: PROTONIX IV 40 MG IV (13:16)
[2025-04-27] MEDS: NSS (PRESERVATIVE FREE) 10 ML IV (13:17)
[2025-04-27 13:27] LABS: C-Reactive Protein 8.60 mg/L (0.0-10.00)
[2025-04-27] MEDS: DILAUDID 0.25 MG IV (13:30)
[2025-04-27] MEDS: ZOFRAN 4 MG IV (16:27)
[2025-04-27] MEDS: LOVENOX 40 MG SC (16:28)
[2025-04-27] MEDS: DILAUDID 0.5 MG IV ×2 (16:28→20:19)
[2025-04-28] MEDS: DILAUDID 0.5 MG IV ×6 (00:20→23:32)
[2025-04-28] MEDS: NSS 1000 IV ×3 (04:26→19:29)
[2025-04-28] MEDS: DILAUDID 0.25 MG IV (05:04)
--- NOTE | 2025-04-28 06:25 | W.PN.GI.CBS2 ---
Today's Communication / Plan
-
Please see assessment and plan for details.
Assessment / Plan
-
1. Pancreatitis: Mild, interstitial, though with persistent symptoms, likely still persistent from her recent admission, possibly worsened with reintroduction of food quickly, with benign exam now though does have signs of dehydration with
hemoglobin greater than 15 and lipase more elevated than before. The etiology of her pancreatitis still is more likely related to alcohol, though on her MRI she did have a new stone in the minor pancreatic duct. There is also a likely some
component of constipation adding to her discomfort, now overall improved. She still has mild tenderness on exam. At this point we will continue IV fluids, start clear liquid diet and continue close observation. I will discuss with Dr. Bentley today
about MRI findings, though think acute intervention is less likely.
Subjective
Subjective
Date of Service: April 28, 2025
Patient doing okay, still some tenderness, the did have some improvement in her discomfort after enema and bowel movement yesterday. No fevers or chills, no nausea or vomiting.
Objective
Data Reviewed
Laboratory Data:
Laboratory Results
Total Bilirubin 0.8 mg/dl (0.2-1.3) 04/27/25 09:13
AST 36 U/L (14-36) 04/27/25 09:13
ALT 26 U/L (0-35) 04/27/25 09:13
Alkaline Phosphatase 52 U/L (38-126) 04/27/25 09:13
Lipase > 4000 U/L (23-300) H* 04/27/25 09:13
Vital Signs and I&O:
Vital Signs
Temp Pulse Resp BP Pulse Ox
99.1 F 93 16 145/93 98
04/27/25 23:43 04/27/25 23:43 04/27/25 23:43 04/27/25 23:43 04/27/25 23:43
I&O
04/26/25 04/27/25 04/28/25
06:59 06:59 06:59
Intake Total 1500 / 1500
Balance 1500 / 1500
Physical Exam
Physical Exam
Exam general: NAD
Abdomen: normal bowel sounds, soft, mild epigastric tenderness, no masses or bruits, no ascites
[2025-04-28 07:20] LABS: Hematocrit 34.5 % (37.0-47.0); Hemoglobin 11.9 g/dL (12.0-16.0); Mean Corp Hgb Conc. 34.5 g/dL (33.0-37.0); Mean Corpuscular Volume 92.7 fL (81.0-99.0); Platelet Count 205 10^3/uL (130-400); Red Cell Dist. Width 11.6 % (11.5-14.5)
[2025-04-28 07:51] LABS: ALT (SGPT) 17 U/L (0-35); AST (SGOT) 19 U/L (14-36); Albumin 2.6 g/dl (3.5-5.0); Alkaline Phosphatase 38 U/L (38-126); Blood Urea Nitrogen 3 mg/dl (7-17); Calcium 6.9 mg/dl (8.4-10.2); Carbon Dioxide 18 mmol/L (22-30); Chloride 118 mmol/L (98-107); Estimated Creatinine Clearance 83 ml/min; Glucose 75 mg/dl (70-99); Lipase 2703 U/L (23-300); Potassium 3.0 mmol/L (3.5-5.1); Sodium 138 mmol/L (135-145); Total Protein 4.6 g/dl (6.3-8.2); eGFR > 60.00
[2025-04-28 07:57] VITALS: BP 147/87
[2025-04-28] MEDS: KCL 270 MEQ IV (08:44)
[2025-04-28] MEDS: NSS (PRESERVATIVE FREE) 10 ML IV (08:45)
[2025-04-28] MEDS: OSCAL 500 + D 500 MG PO ×3 (08:45→19:29)
[2025-04-28] MEDS: PROTONIX IV 40 MG IV (08:45)
[2025-04-28 09:42] LABS: Vitamin D, 25-OH*** 23.8 ng/mL (30-80)
--- NOTE | 2025-04-28 11:16 | CM ---
CM consulted for advanced directive
Spoke w/ patient who shared she doesn't need one at this time but would like more information about it.
CM provided advanced directive packet to patient
[2025-04-28] MEDS: COZAAR 50 MG PO (12:08)
[2025-04-28] MEDS: FLUSH (NSS) 1 FLUSH IV ×3 (12:12→15:53)
[2025-04-28 13:54] LABS: Magnesium 1.5 mg/dl (1.6-2.3)
--- NOTE | 2025-04-28 15:01 | W.PN.HOSP.TC ---
Today's Communication/Plan
-
Clears
Correct K and Mag
Assessment / Plan
Assessment / Plan
64-year-old female with abdominal pain and nausea. Patient was admitted here from 04/23/2025 through 04/26/2025 was discharged. Patient came back on 04/27/2025 with more pain.
CVS: S1-S2 normal
Chest: CTA B/L
Abdomen: Soft,mild epigastric tenderness, Bowel sounds present
Extremities: No edema
# Recurrent pancreatitis
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
History of pancreatitis in the past
History of pancreatic divisum
History of small calculus in the ventral Dr. Hoskins
GI discussing with interventional gastroenterology for further input
Lipase on admission more than 4000
Clear liquid diet with IV fluids
Pain control and nausea control
# Hypokalemia-replaced
# Hypomagnesemia- Replace
# Hypocalcemia-replace. Correct vitamin D deficiency
# Hypertensive urgency with history of essential hypertension
Continue losartan
As needed hydralazine
# History of alcohol use. No reported use postdischarge
# GERD-continue PPI
# Hypoalbuminemia
# Ex-smoker
# DVT prophylaxis-Lovenox
# Full code
D/W RN at bed side
Part of this note was created using voice recognition system. Occasional wrong word or��sound alike� substitutions may have inadvertently occurred due to the inherent limitations of voice recognition software. If noted kindly bring it to my
attention for correction.
Anticipated Discharge: 24 - 48 hours
Subjective/Interval History
-
Date of Service: April 28, 2025
Objective Data
-
Labs:
Laboratory Results
04/28/25 04/28/25
06:55 14:40
WBC 7.4
Hgb 11.9 L D
Hct 34.5 L
Plt Count 205
Sodium 138
Potassium 3.0 L Pending
Chloride 118 H
Carbon Dioxide 18 L
BUN 3 L
Creatinine 0.4 L
Glucose 75
Calcium 6.9 L* D
Total Bilirubin 0.4
AST 19
ALT 17
Alkaline Phosphatase 38
Vital Signs:
Vital Signs
Temp Pulse Resp BP Pulse Ox
98.7 F 72 16 165/93 98
04/28/25 07:57 04/28/25 12:08 04/28/25 07:57 04/28/25 12:08 04/28/25 10:38
I&O
04/27/25 04/28/25 04/29/25
06:59 06:59 06:59
Intake Total 1500 / 1500
Balance 1500 / 1500
[2025-04-28] MEDS: MAGNESIUM SULFATE 50 IV (15:18)
[2025-04-28 15:19] LABS: Potassium 4.3 mmol/L (3.5-5.1)
[2025-04-28] MEDS: VITAMIN D3 (cholecalciferol) 50 MCG PO (15:20)
[2025-04-28 15:28] VITALS: BP 196/105
[2025-04-28] MEDS: APRESOLINE 10 MG IV (15:52)
--- NOTE | 2025-04-28 16:46 | PTCARENOTE ---
Pt AAO x3, BERNARD; OOB in room/to BR; shazia well. BP elevated 177/90; prn Hydralazine given; will assess effectiveness. On room air- pulse ox 99%, no SOB noted. Abd soft, rounded, pt c/o mid upper and Lt upper adb discomfort- increased with fluid
intake. No c/o N/V. Voiding in BR without difficulty. IVF's NSS @ 150 ml/hr infusing via Rt forearm site without sx of infiltration. Resting quietly at present. Will continue to monitor.
[2025-04-28 16:54] VITALS: BP 160/90
[2025-04-28] MEDS: LOVENOX 40 MG SC (17:23)
[2025-04-28] MEDS: SENOKOT 8.6 MG PO (19:29)
[2025-04-28] MEDS: ZOFRAN 4 MG IV (19:37)
[2025-04-28 23:55] VITALS: BP 154/80
[2025-04-29] MEDS: NSS 1000 IV ×4 (01:55→22:36)
[2025-04-29] MEDS: ZOFRAN 4 MG IV ×2 (02:46→19:40)
[2025-04-29] MEDS: DILAUDID 0.5 MG IV ×6 (02:46→23:19)
[2025-04-29 07:30] VITALS: BP 146/79
[2025-04-29 07:39] LABS: Hematocrit 37.3 % (37.0-47.0); Hemoglobin 12.9 g/dL (12.0-16.0); Mean Corp Hgb Conc. 34.6 g/dL (33.0-37.0); Mean Corpuscular Volume 92.6 fL (81.0-99.0); Platelet Count 243 10^3/uL (130-400); Red Cell Dist. Width 11.6 % (11.5-14.5)
[2025-04-29 08:27] LABS: ALT (SGPT) 20 U/L (0-35); AST (SGOT) 19 U/L (14-36); Albumin 3.4 g/dl (3.5-5.0); Alkaline Phosphatase 46 U/L (38-126); Blood Urea Nitrogen 4 mg/dl (7-17); Calcium 9.6 mg/dl (8.4-10.2); Carbon Dioxide 22 mmol/L (22-30); Chloride 111 mmol/L (98-107); Estimated Creatinine Clearance 83 ml/min; Glucose 92 mg/dl (70-99); Lipase 1175 U/L (23-300); Magnesium 2.3 mg/dl (1.6-2.3); Potassium 4.0 mmol/L (3.5-5.1); Sodium 137 mmol/L (135-145); Total Protein 5.7 g/dl (6.3-8.2); eGFR > 60.00
[2025-04-29] MEDS: COZAAR 50 MG PO (09:23)
[2025-04-29] MEDS: OSCAL 500 + D PO ×2 (09:23→09:29)
[2025-04-29] MEDS: MAGNESIUM OXIDE PO ×2 (09:23→09:28)
[2025-04-29] MEDS: VITAMIN D3 (cholecalciferol) 50 MCG PO (09:23)
[2025-04-29] MEDS: PROTONIX IV 40 MG IV (09:23)
[2025-04-29] MEDS: SENOKOT 8.6 MG PO ×2 (09:23→19:40)
[2025-04-29] MEDS: NSS (PRESERVATIVE FREE) 10 ML IV (09:23)
--- NOTE | 2025-04-29 10:50 | W.PN.GI.CBS2 ---
Addendum entered and electronically signed by Mendez Bell MD 04/29/25 16:16:
I saw and evaluated the patient. I reviewed the resident�s note and agree with findings and plan as documented in the resident�s note. \\
Pain is starting to improve. Remains on clears
ABD soft mild tender
REC:
If continuing to improve, advance to low fat diet tomorrow
IVF, pain control
F/U with Dr Bentley as outpt for calcifications in ventral PD/P divisum. Etiology could be due to EtOH alone and pt is committed to quitting
Original Note:
Today's Communication / Plan
-
Continue clears
Assessment / Plan
-
Impression
Patient is a 64-year-old female admitted with persistent symptoms from her recent admission of acute pancreatitis most likely secondary to food reintroduction. She is hemodynamically stable with no signs of dehydration. At this point we will
continue IV fluids, start clear liquid diet and continue close observation. I will discuss with Dr. Bentley today about MRI findings, though think acute intervention is less likely.
MRI abdomen 04/23/2025
Mild pancreatitis most pronounced in the region of the posterior pancreatic head and uncinate process. Findings consistent with incomplete pancreatic divisum, as described.
Intraluminal calculi within the ventral Duct of [place] along the posterior margin of the pancreatic head/uncinate process.
There is distention of the dorsal/main pancreatic duct of [place] measuring up to 4.4 mm.
The common bile duct is normal in caliber without evidence of choledocholithiasis.
Assessment/plan
Hemodynamically stable
No leukocytosis
Hemoglobin 12.9-dilutional decrease in hemoglobin
Hematocrit improving
Normal BUN
Clinically euvolemic
Plan
Continue IV fluids
Continue clears only
Continue to trend H&H and BUN
Replace electrolytes as needed
Patient already schedule an appointment with Dr. Bentley for Intraluminal calculi within the ventral Duct of [place] in July
Increase diet slowly
DVT prophylaxis SCDs
CODE STATUS-full code
Subjective
Subjective
Date of Service: April 29, 2025
Patient seen at bedside
filter tank tender in the epigastric region and right upper quadrant
Had an episode of vomiting last night
Objective
Data Reviewed
Laboratory Data:
Laboratory Results
04/29/25 07:18
04/29/25 07:18
Laboratory Results
Magnesium 2.3 mg/dl (1.6-2.3) 04/29/25 07:18
Total Bilirubin 0.6 mg/dl (0.2-1.3) 04/29/25 07:18
AST 19 U/L (14-36) 04/29/25 07:18
ALT 20 U/L (0-35) 04/29/25 07:18
Alkaline Phosphatase 46 U/L (38-126) 04/29/25 07:18
Lipase 1175 U/L (23-300) H* 04/29/25 07:18
Vital Signs and I&O:
Vital Signs
Temp Pulse Resp BP Pulse Ox
98.7 F 84 18 146/79 99
04/29/25 07:30 04/29/25 09:23 04/29/25 07:30 04/29/25 09:23 04/29/25 09:30
I&O
04/28/25 04/29/25 04/30/25
06:59 06:59 06:59
Intake Total 1500 / 1500 4190 / 4190
Balance 1500 / 1500 4190 / 4190
Physical Exam
Physical Exam
HEENT: Anicteric and Moist mucous membranes
Cardiology: Normal Sinus Rhythm, S1 and S2
Pulmonary: Clear
GI: Soft, Tender (With voluntary guarding in epigastric and right upper quadrant region) and Normal Bowel Sounds
Extremities: No Edema
--- NOTE | 2025-04-29 13:15 | W.PN.HOSP.TC ---
Today's Communication/Plan
-
Continue clears
IV fluids
Assessment / Plan
Assessment / Plan
64-year-old female with abdominal pain and nausea. Patient was admitted here from 04/23/2025 through 04/26/2025 was discharged. Patient came back on 04/27/2025 with more pain.
CVS: S1-S2 normal
Chest: CTA B/L
Abdomen: Soft,mild epigastric tenderness, Bowel sounds present
Extremities: No edema
# Recurrent pancreatitis
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
History of pancreatitis in the past
History of pancreatic divisum
History of small calculus in the ventral duct of [place]
GI discussing with interventional gastroenterology for further input, patient scheduled for appointment with Dr. Bentley in July for this.
Lipase on admission more than 4000-trending down
Clear liquid diet with IV fluids
Pain control and nausea control
# Hypokalemia-replaced
# Hypomagnesemia- Replace
# Hypocalcemia-replace. Correct vitamin D deficiency
# Hypertensive urgency with history of essential hypertension
Continue losartan
As needed hydralazine
# History of alcohol use. No reported use postdischarge
# GERD-continue PPI
# Hypoalbuminemia
# Ex-smoker
# DVT prophylaxis-Lovenox
# Full code
D/W RN at bed side
Part of this note was created using voice recognition system. Occasional wrong word or��sound alike� substitutions may have inadvertently occurred due to the inherent limitations of voice recognition software. If noted kindly bring it to my
attention for correction.
Anticipated Discharge: 24 - 48 hours
Subjective/Interval History
-
Date of Service: April 29, 2025
Objective Data
-
Labs:
Laboratory Results
04/29/25
07:18
WBC 6.8
Hgb 12.9
Hct 37.3
Plt Count 243
Sodium 137
Potassium 4.0
Chloride 111 H
Carbon Dioxide 22
BUN 4 L
Creatinine 0.6
Glucose 92
Calcium 9.6 D
Total Bilirubin 0.6
AST 19
ALT 20
Alkaline Phosphatase 46
Vital Signs:
Vital Signs
Temp Pulse Resp BP Pulse Ox
98.7 F 84 18 146/79 99
04/29/25 07:30 04/29/25 09:23 04/29/25 07:30 04/29/25 09:23 04/29/25 09:30
I&O
04/28/25 04/29/25 04/30/25
06:59 06:59 06:59
Intake Total 1500 / 1500 4190 / 4190
Balance 1500 / 1500 4190 / 4190
[2025-04-29 15:39] VITALS: BP 115/70
[2025-04-29] MEDS: OSCAL 500 + D 500 MG PO ×2 (17:05→23:19)
[2025-04-29] MEDS: LOVENOX 40 MG SC (17:05)
[2025-04-29 23:35] VITALS: BP 146/88
[2025-04-30] MEDS: DILAUDID 0.5 MG IV ×2 (02:28→05:31)
[2025-04-30] MEDS: NSS 1000 IV (04:51)
[2025-04-30 07:37] LABS: Hematocrit 34.0 % (37.0-47.0); Hemoglobin 11.4 g/dL (12.0-16.0); Mean Corp Hgb Conc. 33.5 g/dL (33.0-37.0); Mean Corpuscular Volume 94.2 fL (81.0-99.0); Platelet Count 216 10^3/uL (130-400); Red Cell Dist. Width 12.0 % (11.5-14.5)
[2025-04-30 07:41] VITALS: BP 152/78
[2025-04-30 07:52] LABS: ALT (SGPT) 25 U/L (0-35); AST (SGOT) 24 U/L (14-36); Albumin 3.2 g/dl (3.5-5.0); Alkaline Phosphatase 43 U/L (38-126); Blood Urea Nitrogen 5 mg/dl (7-17); Calcium 9.7 mg/dl (8.4-10.2); Carbon Dioxide 24 mmol/L (22-30); Chloride 114 mmol/L (98-107); Estimated Creatinine Clearance 83 ml/min; Glucose 83 mg/dl (70-99); Lipase 378 U/L (23-300); Potassium 4.3 mmol/L (3.5-5.1); Sodium 137 mmol/L (135-145); Total Protein 5.4 g/dl (6.3-8.2); eGFR > 60.00
[2025-04-30] MEDS: SENOKOT 8.6 MG PO (08:20)
[2025-04-30] MEDS: COZAAR 50 MG PO (08:20)
[2025-04-30] MEDS: MAGNESIUM OXIDE 500 MG PO (08:20)
[2025-04-30] MEDS: VITAMIN D3 (cholecalciferol) 50 MCG PO (08:20)
[2025-04-30] MEDS: OSCAL 500 + D 500 MG PO (08:20)
[2025-04-30] MEDS: PROTONIX IV 40 MG IV (08:21)
[2025-04-30] MEDS: NSS (PRESERVATIVE FREE) 10 ML IV (08:21)
[2025-04-30 09:02] VITALS: BMI 22.4
--- NOTE | 2025-04-30 09:26 | W.PN.GI.CBS2 ---
Addendum entered and electronically signed by Mendez Bell MD 04/30/25 10:52:
I saw and evaluated the patient. I reviewed the resident�s note and agree with findings and plan as documented in the resident�s note.
Abd pain is improved.
ABD soft mild tender
REC:
Advance to low fat diet
Pt agrees to stop EtOH
F/U with Dr Bentley for ventral PD stones, but EtOH more likely cause for pancreatitis
OK for d/c from GI standpoint. Will sign off
Original Note:
Today's Communication / Plan
-
Low-fat diet
Assessment / Plan
-
Impression
Patient is a 64-year-old female admitted with persistent symptoms from her recent admission of acute pancreatitis most likely secondary to food reintroduction. She is hemodynamically stable with no signs of dehydration.
MRI abdomen 04/23/2025
Mild pancreatitis most pronounced in the region of the posterior pancreatic head and uncinate process. Findings consistent with incomplete pancreatic divisum, as described.
Intraluminal calculi within the ventral Duct of [place] along the posterior margin of the pancreatic head/uncinate process.
There is distention of the dorsal/main pancreatic duct of [place] measuring up to 4.4 mm.
The common bile duct is normal in caliber without evidence of choledocholithiasis.
Assessment/plan
Hemodynamically stable
No leukocytosis
No hemoconcentration
Lipase 378
Normal BUN
Clinically euvolemic
Plan
Advance diet to low-fat diet
Hold fluids
Replace electrolytes as needed
Patient already schedule an appointment with Dr. Bentley for Intraluminal calculi within the ventral Duct of [place] in July
DVT prophylaxis SCDs
CODE STATUS-full code
Subjective
Subjective
Date of Service: April 30, 2025
Patient seen and examined at bedside
Feels a lot better, denies any nausea, vomiting,abdominal pain
Objective
Data Reviewed
Laboratory Data:
Laboratory Results
04/30/25 06:57
04/30/25 06:57
Laboratory Results
Magnesium 2.3 mg/dl (1.6-2.3) 04/29/25 07:18
Total Bilirubin 0.5 mg/dl (0.2-1.3) 04/30/25 06:57
AST 24 U/L (14-36) 04/30/25 06:57
ALT 25 U/L (0-35) 04/30/25 06:57
Alkaline Phosphatase 43 U/L (38-126) 04/30/25 06:57
Lipase 378 U/L (23-300) H 04/30/25 06:57
Vital Signs and I&O:
Vital Signs
Temp Pulse Resp BP Pulse Ox
98.3 F 80 18 146/88 97
04/30/25 07:41 04/30/25 08:20 04/30/25 07:41 04/30/25 08:20 04/30/25 08:25
I&O
04/29/25 04/30/25 05/01/25
06:59 06:59 06:59
Intake Total 4190 / 4190 3090 / 3090
Balance 4190 / 4190 3090 / 3090
Physical Exam
Physical Exam
HEENT: Anicteric and Moist mucous membranes
Cardiology: Normal Sinus Rhythm, S1 and S2
GI: Soft, Non Distended, Non Tender and Normal Bowel Sounds
--- NOTE | 2025-04-30 09:44 | W.PN.HOSP.TC ---
Today's Communication/Plan
-
low fat diet
possible DC later today or tomorrow
Assessment / Plan
Assessment / Plan
Patient is a 64-year-old female with past medical history of pancreatic divisum, recurrent pancreatitis, seasonal allergy, essential hypertension, GERD, occasional alcohol use who was discharged 2 days back for episode of pancreatitis came back with
recurrence of worsening abdominal pain, epigastric in nature with some radiation to back.
MR abd/MRCP from 04/23
Mild pancreatitis most pronounced in the region of the posterior pancreatic head and uncinate process. Findings consistent with incomplete pancreatic divisum, as described.
Intraluminal calculi within the ventral Duct of [place] along the posterior margin of the pancreatic head/uncinate process.
There is distention of the dorsal/main pancreatic duct of [place] measuring up to 4.4 mm.
The common bile duct is normal in caliber without evidence of choledocholithiasis.
CVS: S1-S2 normal
Chest: CTA B/L
Abdomen: Soft,mild epigastric tenderness, Bowel sounds present
Extremities: No edema
# Recurrent pancreatitis
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
History of pancreatitis in the past
History of pancreatic divisum
History of small calculus in the ventral duct of [place]
GI discussing with interventional gastroenterology for further input, patient scheduled for appointment with Dr. Bentley in July for this.
Lipase on admission more than 4000-trending down
-pain largely resolved, transitioned to low fat diet; fluids off
-possible DC today or tomorrow morning - will discuss with patient this afternoon
# Hypokalemia-replaced
# Hypomagnesemia- Replace
# Hypocalcemia-replace. Correct vitamin D deficiency
# Hypertensive urgency with history of essential hypertension
Continue losartan
As needed hydralazine
# History of alcohol use. No reported use postdischarge
# GERD-continue PPI
# Hypoalbuminemia
# Ex-smoker
# DVT prophylaxis-Lovenox
# Full code
D/W RN at bed side
Anticipated Discharge: Within 24 hours
Subjective/Interval History
-
Date of Service: April 30, 2025
feeling much better
pain largely resolved
Objective Data
-
Labs:
Laboratory Results
04/30/25
06:57
WBC 4.5 L
Hgb 11.4 L
Hct 34.0 L
Plt Count 216
Sodium 137
Potassium 4.3
Chloride 114 H
Carbon Dioxide 24
BUN 5 L
Creatinine 0.6
Glucose 83
Calcium 9.7
Total Bilirubin 0.5
AST 24
ALT 25
Alkaline Phosphatase 43
Vital Signs:
Vital Signs
Temp Pulse Resp BP Pulse Ox
98.3 F 80 18 146/88 97
04/30/25 07:41 04/30/25 08:20 04/30/25 07:41 04/30/25 08:20 04/30/25 08:25
I&O
04/29/25 04/30/25 05/01/25
06:59 06:59 06:59
Intake Total 4190 / 4190 3090 / 3090
Balance 4190 / 4190 3090 / 3090
Review of Systems
-
History Source: Patient
All other systems: Reviewed and negative
Physical Exam
-
General: No Apparent Distress and Comfortable
HEENT: Negative Oxygen
GI: Soft, Normal Bowel Sounds and Other (mild discomfort mid-epigastric region, no rebound or guarding )
Musculoskeletal: No Edema
Neuro: Awake, Alert, Oriented, No Motor Deficits and Nonfocal/Grossly Intact
Psych: Calm
Data Reviewed
-
Diagnostic Radiology: Report Reviewed by me
Labs: Labs Reviewed by me
--- NOTE | 2025-04-30 13:33 | W.DS.TRANS ---
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
-
Discharge Instructions:
Discharge Diagnosis/Procedures Acute Pancreatitis
Diet Low Fat
Activity As tolerated
Driving Restrictions As prior to admission
Bathing Restrictions None
Instructions:
Stand-Alone Forms:
Changes to Home Medications: Yes
Discharge Medications:
DC Medications w/original date entered in Handpressions
acetaminophen 500 mg tablet (Tylenol Extra Strength) 500 mg PO DAILYPRN PRN mild pain 04/22/25
estradiol 0.05 mg-norethindrone 0.14 mg/24 hr semiwkly transderm patch (CombiPatch) 1 patch transdermal TUSA Hormonal Agent 04/22/25
fexofenadine 180 mg tablet 180 mg PO DAILYPRN PRN allergies 04/22/25
fluticasone propionate 50 mcg/actuation nasal spray,suspension 2 spray intranasal DAILYPRN PRN allergies 04/22/25
losartan 50 mg tablet 50 mg PO DAILY Blood Pressure 04/22/25
omeprazole 20 mg capsule,delayed release 20 mg PO DAILY Gastrointestinal Issue 04/22/25
cholecalciferol (vitamin D3) 50 mcg (2,000 unit) tablet 50 mcg PO DAILY #30 tabs 04/30/25
oxycodone 5 mg tablet 5 mg PO Q8HPRN PRN severe pain #3 tabs 04/30/25
Home Medication Changes
addition of vitamin D and oxycodone as needed
Pending Results: No
--- NOTE | 2025-04-30 13:34 | W.DCSUMMARY ---
Discharge Summary
Discharge Data
Date of Admission: 04/27/25
Date of Discharge: 04/30/25
-
Pending Results: No
Hospital Course
Discharging Physician : Dr. Keyanna Spear
Disposition : Home
Primary care physician : Dr. Sagrario Yuan
Principal Discharge diagnosis : Acute Pancreatitis
Hospital Course :
Ms. Nathaly Varghese is a 64 yo woman with hx pancreatic divisum, recurrent pancreatitis, alcohol use, recent admission 04/23-04/25 for acute pancreatitis thought 2/2 alcohol use versus calculi within ventral duct of [place] (seen on MRI) presents to the ER
with abdominal pain. She was found to have lipase > 4000. She was admitted to medicine with GI consulting. Patient's pain improved with bowel rest, IVF. She was advanced to a low fat diet prior to discharge and tolerated well. She has follow up
with Dr. Bentley in July to discuss calcifications in ventral PD/P divisum.
Patient is committed to avoiding alcohol use in future.
Time spent on discharge was 31 minutes.
Important imaging findings :
MR abd/MRCP from 04/23
Mild pancreatitis most pronounced in the region of the posterior pancreatic head and uncinate process. Findings consistent with incomplete pancreatic divisum, as described.
Intraluminal calculi within the ventral Duct of [place] along the posterior margin of the pancreatic head/uncinate process.
There is distention of the dorsal/main pancreatic duct of [place] measuring up to 4.4 mm.
The common bile duct is normal in caliber without evidence of choledocholithiasis.
Procedure findings :
Discharge Plan
-
Patient Disposition: Home (Routine Discharge)
Discharge Diagnosis/Procedures: Acute Pancreatitis
Diet: Low Fat
Activity: As tolerated
Driving Restrictions: As prior to admission
Bathing Restrictions: None
Referrals:
You Bentley MD [Active, Gastroenterology]
Sagrario Yuan MD [Primary Care Provider, [facility]] - in less than 1 week
Additional Discharge Medication Instructions: You are prescribed Vitamin D repletion, these levels can be monitored by Dr. Yuan
Prescriptions:
New
oxycodone 5 mg Tablet
5 mg PO Q8HPRN PRN (Reason: severe pain) Qty: 3 0RF
cholecalciferol (vitamin D3) 50 mcg (2,000 unit) Tablet
50 mcg PO DAILY Qty: 30 0RF
Continued
losartan 50 mg Tablet
50 mg PO DAILY
fexofenadine 180 mg Tablet
180 mg PO DAILYPRN PRN (Reason: allergies)
acetaminophen [Tylenol Extra Strength] 500 mg Tablet
500 mg PO DAILYPRN PRN (Reason: mild pain)
omeprazole 20 mg Capsule,Delayed Release(Dr/Ec)
20 mg PO DAILY
fluticasone propionate 50 mcg/actuation [place],Suspension
2 spray INTRANASAL DAILYPRN PRN (Reason: allergies)
CombiPatch 0.05-0.14 mg/24 hr Patch Semiweekly
1 patch TRANSDERMAL TUSA
Patient Comments:
04/22/2025, pt. currently wearing 1 patch on her lower right abdomen.
Discharge Orders:
Discharge Patient (As Directed); Ordered 04/30/25
Ordered By: Keyanna Spear
Discharge Date and Time
Print Language: GRENADIAN
--- NOTE | 2025-04-30 13:42 | CM ---
Chart reviewed. Poss d/c later today or tomorrow
No CM needs at this time
Plan: Home, no needs
[2025-04-30 14:11] VITALS: BP 127/81
== END 2025-04-30 14:18 | disposition home or self-care (01) | DRG 439 ==
LOC: 4 EAST ACU 11:25
PROVIDERS: Hospitalist; Physician Assistant Medical; ADMITTING PHYSICIAN Hospitalist; ATTENDING PHYSICIAN Student in an Organized Health Care Education/Training Program; CONSULT PHYSICIAN Internal Medicine Gastroenterology; EMERGENCY PHYSICIAN Emergency Medicine; PRIMARYCARE PHYSICIAN Family Medicine
DX: K85.20 Alcohol induced acute pancreatitis without necrosis or infection (principal); Q45.3 Other congenital malformations of pancreas and pancreatic duct; K86.1 Other chronic pancreatitis; K59.00 Constipation, unspecified; J30.2 Other seasonal allergic rhinitis; I16.0 Hypertensive urgency; E87.6 Hypokalemia; E83.42 Hypomagnesemia; E83.51 Hypocalcemia; E88.09 Other disorders of plasma-protein metabolism, not elsewhere classified; I10 Essential (primary) hypertension; K21.9 Gastro-esophageal reflux disease without esophagitis; Z87.891 Personal history of nicotine dependence; Z88.0 Allergy status to penicillin; Z91.040 Latex allergy status; Z79.890 Hormone replacement therapy; Z79.51 Long term (current) use of inhaled steroids
CPT/HCPCS: 74018; 80053; 81003; 81015; 82306; 83690; 83735; 84132; 85025; 85027; 86140; 96361; 96374; 99285

== ENCOUNTER → 2025-05-19 10:44 | Outpatient (REF) | payer OTHER, SELFPAY | LOC: HWWDC 10:44 | PROVIDERS: ATTENDING PHYSICIAN Nurse Practitioner Family; FAMILY PHYSICIAN Family Medicine | DX: Z12.31 Encounter for screening mammogram for malignant neoplasm of breast (principal) | CPT/HCPCS: 77063; 77067 ==